=== PATIENT | male | born 1935 | race Caucasian/White ===

== ENCOUNTER 2024-11-07 01:47 | Inpatient (IN) | payer MEDICARE, MEDICAID ==
[~2024-11-07] VITALS: Ht 170.2 cm; Wt 52.6 kg
[2024-11-07] VITALS (8 sets, daily range): BP systolic 99–150; BP diastolic 51–66; PULSE 54–80; RESP 13–20; TEMP 35.7–36.3; O2SAT 95–98
[2024-11-07] MEDS: TETANUS, DIPHTHERIA, PERTUSSIS VAC/PF 0.5ML (>10YR OLD) IM ONE (02:46)
[2024-11-07 02:58] LABS: BASOPHILS % 0.7 % (0.0-2.0); HEMATOCRIT. 31.5 % (42.0-52.0); HEMOGLOBIN. 10.2 g/dL (14.0-18.0); LYMPHOCYTES % 19.7 % (20.0-50.0); MEAN CORPUSCULAR HEMOGLOBIN 28.3 pg (28.0-32.0); MEAN CORPUSCULAR HGB CONC 32.4 g/dL (31.0-37.0); MEAN CORPUSCULAR VOLUME 87.2 fL (80.0-94.0); MONOCYTES % 7.9 % (2.0-8.0); NEUTROPHILS % 68.7 % (40.0-76.0); PLATELET 158 x1000/uL (130-400); RED BLOOD CELL COUNT 3.62 mill/uL (4.7-6.1); RED CELL DISTRIBUTION WIDTH 17.1 % (11.6-14.6); WHITE BLOOD COUNT 6.1 x1000/uL (4.5-11.0)
[2024-11-07 03:08] LABS: INR 1.1; PROTHROMBIN TIME 11.9 sec (9.6-11.0)
[2024-11-07 03:11] LABS: CHLORIDE 104 mEq/L (98-107); POTASSIUM 3.5 mEq/L (3.5-5.1); SODIUM 144 mEq/L (136-145)
[2024-11-07 03:12] LABS: CARBON DIOXIDE 34 mEq/L (21-32)
[2024-11-07 03:13] LABS: CALCIUM 8.8 mg/dL (8.7-10.4)
[2024-11-07 03:17] LABS: CREATININE 0.8 mg/dL (0.6-1.3); TROPONIN I HIGH SENSITIVITY 34 ng/L (3.0-53)
[2024-11-07 03:18] LABS: GLUCOSE 126 mg/dL (70-105); UREA NITROGEN BLOOD 24 mg/dL (9-23)
[2024-11-07 03:19] LABS: ALANINE AMINOTRANSFERASE < 7 IU/L (10-49); ALBUMIN 2.8 g/dL (3.2-4.8); ASPARTATE AMINOTRANSFERASE 14 IU/L (<34)
[2024-11-07 03:20] LABS: BILIRUBIN DIRECT 0.1 mg/dL (<=3.0); BILIRUBIN TOTAL 0.4 mg/dL (0.1-1.0)
[2024-11-07] MEDS ORDERED: VANCOMYCIN 1000MG/250ML 250 ML IV STA (04:48)
[2024-11-07 04:50] LABS: CLARITY URINE CLEAR (CLEAR); COLOR URINE YELLOW (YELLOW); GLUCOSE URINE NEGATIVE (NEGATIVE); KETONES URINE NEGATIVE (NEGATIVE); LEUKOCYTE ESTERASE URINE 2+ (NEGATIVE); NITRITE URINE NEGATIVE (NEGATIVE); OCCULT BLOOD URINE NEGATIVE (NEGATIVE); PH URINE 6.5 (4.5-8.0); PROTEIN URINE NEGATIVE (NEGATIVE); SPECIFIC GRAVITY URINE 1.015 (1.005-1.030); UROBILINOGEN URINE 0.2 E.U./dL (0.2-1.0)
[2024-11-07] MEDS: PIPERACILLIN/TAZO 3.375G/50ML 50 ML IV STA (05:01)
[2024-11-07 05:13] LABS: TROPONIN I HIGH SENSITIVITY 35 ng/L (3.0-53)
[2024-11-07 05:31] LABS: SQUAMOUS EPITHELIAL CELL URINE NONE SEEN /lpf (RARE/1+)
[2024-11-07 05:32] LABS: BACTERIA URINE NONE SEEN; RBC URINE 0-2 /hpf (0-2)
[2024-11-07] MEDS: VANCOMYCIN 1GM/200ML PMX (BAXTER) IV NR (05:37)
[2024-11-07] MEDS ORDERED: CONSTULOSE (06:42)
[2024-11-07] MEDS ORDERED: OLAN2.5T77 PO (06:42)
[2024-11-07] MEDS ORDERED: AMLO10TA80 PO (06:42)
[2024-11-07] MEDS ORDERED: FLUO40CA49 PO (06:42)
[2024-11-07] MEDS ORDERED: HYDROCODONE/ACETAMINOPHEN 5/325MG TABLET PO PRN (09:00)
[2024-11-07] MEDS ORDERED: CLONIDINE 0.1MG TABLET PO PRN (09:00)
[2024-11-07] MEDS ORDERED: IPRATROPIUM/ALBUTEROL 0.5-3(2.5)MG/3ML NEB HHN PRN (09:00)
[2024-11-07] MEDS ORDERED: DEXTROSE 50% WATER 50ML SYRINGE IV PRN (09:00)
[2024-11-07] MEDS ORDERED: MAGNESIUM/ALUMINUM HYDROXIDE/SIMETHICONE 30ML UDC PO PRN (09:00)
[2024-11-07] MEDS: BLOOD SUGAR DIAGNOSTIC STRIP TEST SCH (09:20)
[2024-11-07] MEDS: ENOXAPARIN 40MG/0.4ML SYR SUBCUT SCH (09:29)
[2024-11-07] MEDS: CEFTRIAXONE 1GM/50ML 50 ML IV SCH (11:00)
[2024-11-07] MEDS: INSULIN LISPRO 100 UNITS/ML SUBCUT SCH (13:10)
[2024-11-07] MEDS: GUAIFENESIN 200MG/10ML SUGAR FREE UDC PO PRN (17:32)
[2024-11-07] MEDS: IPRATROPIUM/ALBUTEROL 0.5-3(2.5)MG/3ML NEB HHN SCH (20:56)
[2024-11-07] MEDS: FUROSEMIDE 20MG/2ML VIAL IVP SCH (21:47)
[2024-11-07] MEDS: HALOPERIDOL LACTATE 5MG/ML VIAL IM NR (22:41)
[2024-11-08] VITALS (10 sets, daily range): BP systolic 108–152; BP diastolic 48–76; PULSE 63–92; RESP 18–20; TEMP 35.8–36.6; O2SAT 91–100
[2024-11-08] MEDS: DOXYCYCLINE 100MG/100ML 100 ML IV SCH (00:30)
[2024-11-08 06:21] LABS: CARBON DIOXIDE 32 mEq/L (21-32); CHLORIDE 103 mEq/L (98-107); POTASSIUM 3.5 mEq/L (3.5-5.1); SODIUM 144 mEq/L (136-145)
[2024-11-08 06:22] LABS: CALCIUM 8.8 mg/dL (8.7-10.4)
[2024-11-08 06:24] LABS: TROPONIN I HIGH SENSITIVITY 35 ng/L (3.0-53)
[2024-11-08 06:26] LABS: CREATININE 0.7 mg/dL (0.6-1.3); GLUCOSE 89 mg/dL (70-105)
[2024-11-08 06:27] LABS: LDL CHOLESTEROL 48 mg/dL (5-100); TRIGLYCERIDE 60 mg/dL (0-150); UREA NITROGEN BLOOD 16 mg/dL (9-23)
[2024-11-08 06:28] LABS: ALANINE AMINOTRANSFERASE 7 IU/L (10-49); ALBUMIN 2.9 g/dL (3.2-4.8); ASPARTATE AMINOTRANSFERASE 18 IU/L (<34); CHOLESTEROL 120 mg/dL (<200)
[2024-11-08 06:29] LABS: BILIRUBIN DIRECT 0.1 mg/dL (<=3.0); BILIRUBIN TOTAL 0.4 mg/dL (0.1-1.0); HDL CHOLESTEROL 56 mg/dL (>55); PHOSPHORUS 2.7 mg/dL (2.5-4.9); T4 FREE 0.91 ng/dL (0.89-1.76)
[2024-11-08 06:43] LABS: BASOPHILS % 1.1 % (0.0-2.0); EOSINOPHILS % 4.1 % (0.0-5.0); HEMATOCRIT. 32.2 % (42.0-52.0); HEMOGLOBIN. 10.3 g/dL (14.0-18.0); LYMPHOCYTES % 22.7 % (20.0-50.0); MEAN CORPUSCULAR HEMOGLOBIN 28.2 pg (28.0-32.0); MEAN CORPUSCULAR HGB CONC 32.1 g/dL (31.0-37.0); MEAN CORPUSCULAR VOLUME 87.6 fL (80.0-94.0); MEAN PLATELET VOLUME 7.2 fl (7.4-10.4); MONOCYTES % 9.7 % (2.0-8.0); NEUTROPHILS % 62.4 % (40.0-76.0); PLATELET 145 x1000/uL (130-400); RED BLOOD CELL COUNT 3.67 mill/uL (4.7-6.1); RED CELL DISTRIBUTION WIDTH 16.4 % (11.6-14.6); WHITE BLOOD COUNT 4.5 x1000/uL (4.5-11.0)
[2024-11-08] MEDS: FLUOXETINE HCL 10 MG CAPSULE PO SCH (10:35)
[2024-11-08] MEDS: AMLODIPINE 10MG TABLET PO SCH (10:36)
[2024-11-08] MEDS: MAGNESIUM 1 G PREMIX 100 ML IV NR (11:43)
[2024-11-08] MEDS: POTASSIUM CHLORIDE 20MEQ TABLET SR PO NR (11:43)
[2024-11-08] MEDS: ENOXAPARIN 60MG/0.6ML SYR SUBCUT SCH (15:40)
[2024-11-08] MEDS: FUROSEMIDE 20MG/2ML VIAL IVP SCH (18:27)
[2024-11-08] MEDS: HALOPERIDOL LACTATE 5MG/ML VIAL IM PRN (22:15)
[2024-11-09] VITALS (10 sets, daily range): BP systolic 91–131; BP diastolic 47–78; PULSE 57–94; RESP 16–19; TEMP 36.1–37.1; O2SAT 90–100
[2024-11-09 08:44] LABS: BASOPHILS % 1.8 % (0.0-2.0); EOSINOPHILS % 4.3 % (0.0-5.0); HEMATOCRIT. 33.6 % (42.0-52.0); HEMOGLOBIN. 10.6 g/dL (14.0-18.0); LYMPHOCYTES % 25.9 % (20.0-50.0); MEAN CORPUSCULAR HEMOGLOBIN 27.8 pg (28.0-32.0); MEAN CORPUSCULAR HGB CONC 31.6 g/dL (31.0-37.0); MEAN CORPUSCULAR VOLUME 88.1 fL (80.0-94.0); MEAN PLATELET VOLUME 7.2 fl (7.4-10.4); MONOCYTES % 6.7 % (2.0-8.0); NEUTROPHILS % 61.3 % (40.0-76.0); PLATELET 140 x1000/uL (130-400); RED BLOOD CELL COUNT 3.81 mill/uL (4.7-6.1); RED CELL DISTRIBUTION WIDTH 16.4 % (11.6-14.6); WHITE BLOOD COUNT 3.1 x1000/uL (4.5-11.0)
[2024-11-09 08:50] LABS: CHLORIDE 102 mEq/L (98-107); POTASSIUM 3.3 mEq/L (3.5-5.1); SODIUM 145 mEq/L (136-145)
[2024-11-09 08:51] LABS: CALCIUM 8.5 mg/dL (8.7-10.4); CARBON DIOXIDE 36 mEq/L (21-32)
[2024-11-09 08:55] LABS: UREA NITROGEN BLOOD 15 mg/dL (9-23)
[2024-11-09 08:56] LABS: CREATININE 0.8 mg/dL (0.6-1.3); GLUCOSE 77 mg/dL (70-105)
[2024-11-09 08:57] LABS: ALANINE AMINOTRANSFERASE < 7 IU/L (10-49); ASPARTATE AMINOTRANSFERASE 19 IU/L (<34)
[2024-11-09 08:58] LABS: ALBUMIN 2.9 g/dL (3.2-4.8); BILIRUBIN DIRECT 0.1 mg/dL (<=3.0); BILIRUBIN TOTAL 0.5 mg/dL (0.1-1.0); PHOSPHORUS 2.9 mg/dL (2.5-4.9); PROTEIN TOTAL 6.3 g/dL (6.0-8.3)
[2024-11-09] MEDS: POTASSIUM CHLORIDE 20MEQ TABLET SR PO NR (14:19)
[2024-11-10] VITALS (10 sets, daily range): BP systolic 101–138; BP diastolic 45–68; PULSE 65–86; RESP 16–20; TEMP 36.4–37.1; O2SAT 95–99
[2024-11-10 11:25] LABS: BASOPHILS % 1.2 % (0.0-2.0); EOSINOPHILS % 3.4 % (0.0-5.0); HEMATOCRIT. 34.9 % (42.0-52.0); HEMOGLOBIN. 11.2 g/dL (14.0-18.0); MEAN CORPUSCULAR HEMOGLOBIN 28.1 pg (28.0-32.0); MEAN CORPUSCULAR VOLUME 87.7 fL (80.0-94.0); MEAN PLATELET VOLUME 7.4 fl (7.4-10.4); MONOCYTES % 6.7 % (2.0-8.0); NEUTROPHILS % 61.7 % (40.0-76.0); PLATELET 161 x1000/uL (130-400); RED BLOOD CELL COUNT 3.97 mill/uL (4.7-6.1); WHITE BLOOD COUNT 3.1 x1000/uL (4.5-11.0)
[2024-11-10 11:32] LABS: CHLORIDE 98 mEq/L (98-107); SODIUM 144 mEq/L (136-145)
[2024-11-10 11:33] LABS: CARBON DIOXIDE 33 mEq/L (21-32)
[2024-11-10 11:38] LABS: CREATININE 0.9 mg/dL (0.6-1.3); GLUCOSE 71 mg/dL (70-105); UREA NITROGEN BLOOD 17 mg/dL (9-23)
[2024-11-10] MEDS: KCL 20MEQ/100ML PREMIX 100 ML IV NR (13:04)
[2024-11-10] MEDS: MAGNESIUM 1 G PREMIX 100 ML IV NR (13:04)
[2024-11-11] VITALS (11 sets, daily range): BP systolic 110–139; BP diastolic 52–89; PULSE 60–89; RESP 16–22; TEMP 36.1–36.7; O2SAT 96–100
[2024-11-11] MEDS: POTASSIUM CHLORIDE 20MEQ/PACKET PO NR (06:46)
[2024-11-11 06:53] LABS: CARBON DIOXIDE 34 mEq/L (21-32); CHLORIDE 98 mEq/L (98-107); POTASSIUM 3.1 mEq/L (3.5-5.1); SODIUM 141 mEq/L (136-145)
[2024-11-11 06:55] LABS: CALCIUM 9.1 mg/dL (8.7-10.4)
[2024-11-11 06:59] LABS: CREATININE 0.8 mg/dL (0.6-1.3); GLUCOSE 94 mg/dL (70-105); UREA NITROGEN BLOOD 23 mg/dL (9-23)
[2024-11-11 07:12] LABS: BASOPHILS % 0.9 % (0.0-2.0); EOSINOPHILS % 2.8 % (0.0-5.0); HEMATOCRIT. 33.7 % (42.0-52.0); HEMOGLOBIN. 10.9 g/dL (14.0-18.0); LYMPHOCYTES % 27.3 % (20.0-50.0); MEAN CORPUSCULAR HEMOGLOBIN 28.1 pg (28.0-32.0); MEAN CORPUSCULAR HGB CONC 32.4 g/dL (31.0-37.0); MEAN CORPUSCULAR VOLUME 86.6 fL (80.0-94.0); MEAN PLATELET VOLUME 7.3 fl (7.4-10.4); MONOCYTES % 11.3 % (2.0-8.0); NEUTROPHILS % 57.7 % (40.0-76.0); PLATELET 172 x1000/uL (130-400); RED BLOOD CELL COUNT 3.89 mill/uL (4.7-6.1); RED CELL DISTRIBUTION WIDTH 16.8 % (11.6-14.6); WHITE BLOOD COUNT 3.7 x1000/uL (4.5-11.0)
[2024-11-11] MEDS: MAGNESIUM 2 G PREMIX 50 ML IV NR (08:59)
[2024-11-11] MEDS ORDERED: LOV60 SUBCUT (09:56)
[2024-11-11] MEDS ORDERED: APIX5TAB MT (09:56)
[2024-11-12] VITALS (8 sets, daily range): BP systolic 77–114; BP diastolic 35–55; PULSE 47–92; RESP 16–19; TEMP 35.6–36.5; O2SAT 96–99
[2024-11-12 07:56] LABS: CHLORIDE 99 mEq/L (98-107); POTASSIUM 3.3 mEq/L (3.5-5.1); SODIUM 143 mEq/L (136-145)
[2024-11-12 07:57] LABS: CALCIUM 9.2 mg/dL (8.7-10.4); CARBON DIOXIDE 30 mEq/L (21-32)
[2024-11-12 08:02] LABS: CREATININE 0.8 mg/dL (0.6-1.3); GLUCOSE 129 mg/dL (70-105); UREA NITROGEN BLOOD 29 mg/dL (9-23)
[2024-11-12 08:22] LABS: BASOPHILS % 0.6 % (0.0-2.0); EOSINOPHILS % 0.7 % (0.0-5.0); HEMATOCRIT. 31.3 % (42.0-52.0); LYMPHOCYTES % 23.3 % (20.0-50.0); MEAN CORPUSCULAR HGB CONC 31.8 g/dL (31.0-37.0); MEAN CORPUSCULAR VOLUME 87.8 fL (80.0-94.0); MEAN PLATELET VOLUME 7.8 fl (7.4-10.4); NEUTROPHILS % 68.4 % (40.0-76.0); PLATELET 142 x1000/uL (130-400); RED BLOOD CELL COUNT 3.57 mill/uL (4.7-6.1); RED CELL DISTRIBUTION WIDTH 16.8 % (11.6-14.6); WHITE BLOOD COUNT 2.3 x1000/uL (4.5-11.0)
[2024-11-12] MEDS ORDERED: POTASSIUM CHLORIDE 20MEQ/PACKET PO NR (15:00)
[2024-11-12] MEDS: SODIUM CHLORIDE 0.9% (SEPSIS BOLUS) IV ONE (16:30)
[2024-11-12] MEDS ORDERED: POTASSIUM CHLORIDE 40 MEQ in DEXT 5% WATER 230 ML IV ONE (16:45)
[2024-11-12] MEDS: KCL 20MEQ/100ML X 2 FOR TOTAL KCL 40MEQ/200ML IV SCH (18:06)
[2024-11-13] VITALS (7 sets, daily range): BP systolic 77–90; BP diastolic 32–42; PULSE 43–59; RESP 17–18; TEMP 36.1–36.6; O2SAT 97–99
[2024-11-13] MEDS: SODIUM CHLORIDE 0.9% 500 ML IV ONE (02:53)
[2024-11-13] MEDS: SODIUM CHLORIDE 0.9% 1,000 ML IV SCH (08:07)
[2024-11-13] MEDS: SODIUM CHLORIDE 0.9% 250 ML IV ONE (12:45)
[2024-11-13] MEDS: MIDODRINE HCL 5MG TABLET PO SCH ×2 (13:22→21:12)
[2024-11-14] VITALS (70 sets, daily range): BP systolic 78–128; BP diastolic 37–99; PULSE 43–76; RESP 12–23; TEMP 35.6–36.6; O2SAT 88–100
[2024-11-14] MEDS: POTASSIUM CHLORIDE 20MEQ TABLET SR PO PRN (00:24)
[2024-11-14] MEDS: NOREPINEPHRINE 8MG/250ML PMX 250 ML IV PRN (05:02)
[2024-11-14 06:30] LABS: CHLORIDE 107 mEq/L (98-107); POTASSIUM 3.9 mEq/L (3.5-5.1); SODIUM 146 mEq/L (136-145)
[2024-11-14 06:31] LABS: CALCIUM 8.1 mg/dL (8.7-10.4); CARBON DIOXIDE 29 mEq/L (21-32)
[2024-11-14 06:36] LABS: CREATININE 1.2 mg/dL (0.6-1.3); GLUCOSE 97 mg/dL (70-105); UREA NITROGEN BLOOD 38 mg/dL (9-23)
[2024-11-14 06:38] LABS: PHOSPHORUS 4.2 mg/dL (2.5-4.9)
[2024-11-14 06:41] LABS: PREALBUMIN < 5.0 mg/dl (10.0-40.0)
[2024-11-14 09:07] LABS: IMMUNOGLOBULIN A 442 mg/dL (61-437); IMMUNOGLOBULIN G 1599 mg/dL (603-1613); IMMUNOGLOBULIN M 47 mg/dL (15-143)
[2024-11-14 11:53] LABS: BASOPHILS % 0.3 % (0.0-2.0); EOSINOPHILS % 0.3 % (0.0-5.0); HEMATOCRIT. 29.9 % (42.0-52.0); HEMOGLOBIN. 9.1 g/dL (14.0-18.0); LYMPHOCYTES % 11.6 % (20.0-50.0); MEAN CORPUSCULAR HEMOGLOBIN 27.4 pg (28.0-32.0); MEAN CORPUSCULAR HGB CONC 30.5 g/dL (31.0-37.0); MEAN CORPUSCULAR VOLUME 89.8 fL (80.0-94.0); MEAN PLATELET VOLUME 8.8 fl (7.4-10.4); MONOCYTES % 10.3 % (2.0-8.0); NEUTROPHILS % 77.5 % (40.0-76.0); PLATELET 129 x1000/uL (130-400); RED BLOOD CELL COUNT 3.33 mill/uL (4.7-6.1); RED CELL DISTRIBUTION WIDTH 16.9 % (11.6-14.6); WHITE BLOOD COUNT 3.1 x1000/uL (4.5-11.0)
[2024-11-14] MEDS ORDERED: DOPAMINE 400MG/250ML PREMIX 250 ML IV SCH (14:00)
[2024-11-14] MEDS: DOPAMINE 400MG/250ML PREMIX 250 ML IV SCH (16:05)
[2024-11-14] MEDS: SODIUM CHLORIDE 0.45% 500 ML IV ONE (17:56)
[2024-11-14] MEDS: DEXTROSE 50% WATER 50ML SYRINGE IV PRN (22:05)
[2024-11-15] VITALS (94 sets, daily range): BP systolic 112–144; BP diastolic 44–95; PULSE 67–81; RESP 15–30; TEMP 36.8–37.4; O2SAT 86–100
[2024-11-15 06:08] LABS: POTASSIUM 3.8 mEq/L (3.5-5.1)
[2024-11-15 06:09] LABS: CALCIUM 8.2 mg/dL (8.7-10.4)
[2024-11-15 06:14] LABS: CREATININE 1.3 mg/dL (0.6-1.3)
[2024-11-15 06:34] LABS: HEMATOCRIT. 29.4 % (42.0-52.0); HEMOGLOBIN. 9.3 g/dL (14.0-18.0); MEAN CORPUSCULAR HGB CONC 31.8 g/dL (31.0-37.0); MEAN CORPUSCULAR VOLUME 88.2 fL (80.0-94.0); MEAN PLATELET VOLUME 8.1 fl (7.4-10.4); PLATELET 132 x1000/uL (130-400); RED BLOOD CELL COUNT 3.33 mill/uL (4.7-6.1); WHITE BLOOD COUNT 4.2 x1000/uL (4.5-11.0)
[2024-11-15 06:51] LABS: DIFFERENTIAL COMMENT 1
[2024-11-15 11:14] LABS: PLATELET ESTIMATE NORMAL
[2024-11-15 11:15] LABS: ANISOCYTOSIS 1+
[2024-11-15] MEDS: DEXTROSE 5% WATER 1,000 ML IV SCH (12:01)
[2024-11-15] MEDS: DOPAMINE 400MG/250ML PREMIX 250 ML IV SCH (20:00)
[2024-11-15] MEDS: IPRATROPIUM/ALBUTEROL 0.5-3(2.5)MG/3ML NEB HHN SCH (21:02)
[2024-11-15] MEDS: THEOPHYLLINE ANHYDROUS 80MG/15ML ORAL SYR PO SCH (21:32)
[2024-11-15] MEDS: MIDODRINE HCL 5MG TABLET PO SCH (22:00)
[2024-11-16] VITALS (65 sets, daily range): BP systolic 104–150; BP diastolic 47–80; PULSE 67–90; RESP 14–21; TEMP 36.3–36.8; O2SAT 95–100
[2024-11-16 06:36] LABS: CARBON DIOXIDE 29 mEq/L (21-32); CHLORIDE 109 mEq/L (98-107); POTASSIUM 3.5 mEq/L (3.5-5.1); SODIUM 144 mEq/L (136-145)
[2024-11-16 06:37] LABS: BASOPHILS % 0.3 % (0.0-2.0); CALCIUM 8.4 mg/dL (8.7-10.4); EOSINOPHILS % 0.1 % (0.0-5.0); HEMATOCRIT. 27.7 % (42.0-52.0); MEAN CORPUSCULAR HEMOGLOBIN 28.3 pg (28.0-32.0); MEAN CORPUSCULAR HGB CONC 32.4 g/dL (31.0-37.0); MEAN CORPUSCULAR VOLUME 87.2 fL (80.0-94.0); MEAN PLATELET VOLUME 8.2 fl (7.4-10.4); MONOCYTES % 6.5 % (2.0-8.0); NEUTROPHILS % 76.1 % (40.0-76.0); PLATELET 114 x1000/uL (130-400); RED BLOOD CELL COUNT 3.17 mill/uL (4.7-6.1); RED CELL DISTRIBUTION WIDTH 16.8 % (11.6-14.6); WHITE BLOOD COUNT 5.9 x1000/uL (4.5-11.0)
[2024-11-16 06:42] LABS: CREATININE 1.4 mg/dL (0.6-1.3); UREA NITROGEN BLOOD 40 mg/dL (9-23)
[2024-11-16 06:43] LABS: GLUCOSE 232 mg/dL (70-105)
[2024-11-16] MEDS ORDERED: DOPAMINE 400MG/250ML PREMIX 250 ML IV PRN ×2 (09:30→10:03)
[2024-11-16] MEDS ORDERED: POTASSIUM CHLORIDE 20MEQ TABLET SR PO NR (10:30)
[2024-11-16] MEDS: FUROSEMIDE 40MG/4ML VIAL IVP NR (12:10)
[2024-11-16] MEDS: KCL 20MEQ/100ML PREMIX 100 ML IV NR (12:10)
[2024-11-17] VITALS (26 sets, daily range): BP systolic 92–143; BP diastolic 44–68; PULSE 68–90; RESP 13–24; TEMP 36.4–36.9; O2SAT 51–100
[2024-11-17 07:00] LABS: POTASSIUM 4.6 mEq/L (3.5-5.1)
[2024-11-17 07:02] LABS: CALCIUM 8.5 mg/dL (8.7-10.4)
[2024-11-17 07:06] LABS: CREATININE 1.3 mg/dL (0.6-1.3)
[2024-11-17 07:11] LABS: BASOPHILS % 0.5 % (0.0-2.0); EOSINOPHILS % 1.8 % (0.0-5.0); HEMATOCRIT. 24.9 % (42.0-52.0); LYMPHOCYTES % 19.7 % (20.0-50.0); MEAN CORPUSCULAR HEMOGLOBIN 28.7 pg (28.0-32.0); MEAN CORPUSCULAR VOLUME 89.9 fL (80.0-94.0); MEAN PLATELET VOLUME 7.9 fl (7.4-10.4); MONOCYTES % 7.4 % (2.0-8.0); NEUTROPHILS % 70.6 % (40.0-76.0); PLATELET 93 x1000/uL (130-400); RED BLOOD CELL COUNT 2.77 mill/uL (4.7-6.1); RED CELL DISTRIBUTION WIDTH 16.9 % (11.6-14.6); WHITE BLOOD COUNT 4.7 x1000/uL (4.5-11.0)
[2024-11-17] MEDS: ACETAMINOPHEN 325MG TABLET PO PRN (15:03)
[2024-11-18] VITALS (19 sets, daily range): BP systolic 100–141; BP diastolic 47–88; PULSE 70–91; RESP 14–28; TEMP 36.2–36.78072; O2SAT 90–100
[2024-11-18 08:58] LABS: POTASSIUM 4.1 mEq/L (3.5-5.1)
[2024-11-18 08:59] LABS: CALCIUM 9.1 mg/dL (8.7-10.4)
[2024-11-18 09:04] LABS: CREATININE 1.2 mg/dL (0.6-1.3)
[2024-11-18] MEDS: SCOPOLAMINE HYDROBROMIDE PATCH 72HR TD SCH (12:16)
[2024-11-18 13:54] LABS: BASOPHILS % 0.7 % (0.0-2.0); DIFFERENTIAL COMMENT 0; EOSINOPHILS % 6.8 % (0.0-5.0); LYMPHOCYTES % 22.6 % (20.0-50.0); MEAN CORPUSCULAR HEMOGLOBIN 28.3 pg (28.0-32.0); MEAN CORPUSCULAR HGB CONC 32.8 g/dL (31.0-37.0); MEAN CORPUSCULAR VOLUME 86.4 fL (80.0-94.0); MEAN PLATELET VOLUME 8.2 fl (7.4-10.4); MONOCYTES % 12.7 % (2.0-8.0); NEUTROPHILS % 57.2 % (40.0-76.0); PLATELET 103 x1000/uL (130-400); RED BLOOD CELL COUNT 2.12 mill/uL (4.7-6.1); RED CELL DISTRIBUTION WIDTH 16.5 % (11.6-14.6); WHITE BLOOD COUNT 3.2 x1000/uL (4.5-11.0)
[2024-11-18 14:04] LABS: HEMATOCRIT. 18.3 % (42.0-52.0)
[2024-11-19] VITALS (14 sets, daily range): BP systolic 114–143; BP diastolic 57–102; PULSE 67–85; RESP 11–20; TEMP 35.6–37.1; O2SAT 88–100
[2024-11-19 02:27] LABS: PROTHROMBIN TIME 10.6 sec (9.6-11.0)
[2024-11-19] MEDS ORDERED: SCOPOLAMINE HYDROBROMIDE PATCH 72HR TD SCH (09:00)
[2024-11-19] MEDS: KCL 20MEQ/100ML PREMIX 100 ML IV NR (16:25)
[2024-11-19 16:51] LABS: HEMATOCRIT 22.6 % (42.0-52.0); HEMOGLOBIN 7.6 g/dL (14.0-18.0)
[2024-11-20] VITALS (12 sets, daily range): BP systolic 109–149; BP diastolic 59–81; PULSE 68–81; RESP 15–23; TEMP 36.1–36.8; O2SAT 92–98
[2024-11-20 05:37] LABS: POTASSIUM 4.7 mEq/L (3.5-5.1)
[2024-11-20 05:39] LABS: CALCIUM 8.9 mg/dL (8.7-10.4)
[2024-11-20 05:43] LABS: CREATININE 1.2 mg/dL (0.6-1.3)
[2024-11-20 05:58] LABS: HEMATOCRIT. 23.4 % (42.0-52.0); HEMOGLOBIN. 7.6 g/dL (14.0-18.0); MEAN CORPUSCULAR HEMOGLOBIN 27.9 pg (28.0-32.0); MEAN CORPUSCULAR HGB CONC 32.7 g/dL (31.0-37.0); MEAN CORPUSCULAR VOLUME 85.3 fL (80.0-94.0); PLATELET 134 x1000/uL (130-400); RED BLOOD CELL COUNT 2.74 mill/uL (4.7-6.1); RED CELL DISTRIBUTION WIDTH 16.5 % (11.6-14.6); WHITE BLOOD COUNT 3.2 x1000/uL (4.5-11.0)
[2024-11-20 06:50] LABS: DIFFERENTIAL COMMENT 1
[2024-11-20] MEDS ORDERED: SODIUM CHLORIDE 0.45% 1,000 ML IV SCH (10:15)
[2024-11-20] MEDS: PIPERACILLIN/TAZO 3.375G/50ML 50 ML IV SCH (10:15)
[2024-11-20] MEDS: PANTOPRAZOLE SODIUM 40 MG/VIAL IV NR (10:33)
[2024-11-20] MEDS: VANCOMYCIN 1GM PMX (XELLIA) 200 ML IV SCH (11:52)
[2024-11-20] MEDS: MIDODRINE HCL 5MG TABLET PO SCH (13:09)
[2024-11-20 15:18] LABS: ANISOCYTOSIS 1+; HYPOCHROMASIA 1+; PLATELET ESTIMATE NORMAL
[2024-11-21] VITALS (16 sets, daily range): BP systolic 110–146; BP diastolic 57–92; PULSE 67–74; RESP 14–19; TEMP 36.28068–36.6; O2SAT 85–100
[2024-11-21 07:06] LABS: CARBON DIOXIDE 32 mEq/L (21-32); CHLORIDE 104 mEq/L (98-107); POTASSIUM 4.5 mEq/L (3.5-5.1); SODIUM 142 mEq/L (136-145)
[2024-11-21 07:07] LABS: CALCIUM 8.5 mg/dL (8.7-10.4)
[2024-11-21 07:10] LABS: CREATININE 1.3 mg/dL (0.6-1.3)
[2024-11-21 07:11] LABS: GLUCOSE 112 mg/dL (70-105); IRON 29 ug/dL (65-175)
[2024-11-21 07:12] LABS: UREA NITROGEN BLOOD 45 mg/dL (9-23)
[2024-11-21 07:14] LABS: TOTAL IRON BINDING CAPACITY 207 ug/dl (250-425)
[2024-11-21 07:17] LABS: VITAMIN B12 SERUM 901 pg/mL (211-911)
[2024-11-21 07:18] LABS: FERRITIN 188 ng/mL (22-322); FOLIC ACID (FOLATE) SERUM 12.47 ng/mL (>5.38)
[2024-11-21 08:27] LABS: BASOPHILS % 0.5 % (0.0-2.0); DIFFERENTIAL COMMENT 0; EOSINOPHILS % 4.6 % (0.0-5.0); LYMPHOCYTES % 20.6 % (20.0-50.0); MEAN CORPUSCULAR HGB CONC 33.5 g/dL (31.0-37.0); MEAN CORPUSCULAR VOLUME 86.6 fL (80.0-94.0); MEAN PLATELET VOLUME 7.9 fl (7.4-10.4); MONOCYTES % 12.2 % (2.0-8.0); NEUTROPHILS % 62.1 % (40.0-76.0); PLATELET 136 x1000/uL (130-400); RED BLOOD CELL COUNT 2.39 mill/uL (4.7-6.1); RED CELL DISTRIBUTION WIDTH 16.6 % (11.6-14.6); WHITE BLOOD COUNT 4.1 x1000/uL (4.5-11.0)
[2024-11-21 08:44] LABS: HEMATOCRIT. 20.7 % (42.0-52.0); HEMOGLOBIN. 6.9 g/dL (14.0-18.0)
[2024-11-21] MEDS: PANTOPRAZOLE SODIUM 40 MG/VIAL IV SCH (09:28)
[2024-11-21] MEDS: VANCOMYCIN 750MG PMX (XELLIA) 150 ML IV SCH (09:28)
[2024-11-21] MEDS: LORAZEPAM 2MG/ML UD SYRINGE IV NR (15:00)
[2024-11-21] MEDS: FERROUS SULFATE 300MG/5ML UDC NG SCH (20:34)
[2024-11-21] MEDS: ASCORBIC ACID 250 MG TABLET NG SCH (20:34)
[2024-11-22] VITALS (11 sets, daily range): BP systolic 122–141; BP diastolic 61–96; PULSE 61–78; RESP 12–19; TEMP 36.1–36.7; O2SAT 88–97
[2024-11-22] MEDS: DEXTROSE 5% WATER 1,000 ML IV SCH (01:15)
[2024-11-22 06:43] LABS: POTASSIUM 4.3 mEq/L (3.5-5.1)
[2024-11-22 06:44] LABS: CALCIUM 8.6 mg/dL (8.7-10.4)
[2024-11-22 06:49] LABS: CREATININE 1.2 mg/dL (0.6-1.3)
[2024-11-22 06:53] LABS: BASOPHILS % 1.8 % (0.0-2.0); EOSINOPHILS % 6.9 % (0.0-5.0); HEMATOCRIT. 25.1 % (42.0-52.0); HEMOGLOBIN. 8.3 g/dL (14.0-18.0); LYMPHOCYTES % 22.4 % (20.0-50.0); MEAN CORPUSCULAR HEMOGLOBIN 28.5 pg (28.0-32.0); MEAN CORPUSCULAR HGB CONC 32.9 g/dL (31.0-37.0); MEAN CORPUSCULAR VOLUME 86.5 fL (80.0-94.0); MEAN PLATELET VOLUME 7.4 fl (7.4-10.4); MONOCYTES % 14.3 % (2.0-8.0); NEUTROPHILS % 54.6 % (40.0-76.0); PLATELET 158 x1000/uL (130-400); RED CELL DISTRIBUTION WIDTH 16.1 % (11.6-14.6); WHITE BLOOD COUNT 4.6 x1000/uL (4.5-11.0)
[2024-11-22] MEDS ORDERED: POLYMYXIN B SULFATE 500000 UNITS/VIAL ONE (12:56)
[2024-11-22] MEDS ORDERED: LIDOCAINE HCL 1% 10 MG/ML 10ML VIAL ONE (12:56)
[2024-11-22] MEDS ORDERED: BUPIVACAINE HCL/PF 0.5% (5MG/ML) 10ML ONE (12:56)
[2024-11-22] MEDS ORDERED: MIDAZOLAM HCL 2 MG/2 ML VIAL ONE (13:24)
[2024-11-22] MEDS: MIDODRINE HCL 5MG TABLET PO SCH (14:24)
[2024-11-22] MEDS: FUROSEMIDE 20MG/2ML VIAL IVP SCH (18:15)
[2024-11-23] VITALS (15 sets, daily range): BP systolic 99–140; BP diastolic 51–101; PULSE 72–87; RESP 11–27; TEMP 36.2–37.4; O2SAT 76–100
[2024-11-23 05:57] LABS: HEMATOCRIT. 25.9 % (42.0-52.0); HEMOGLOBIN. 8.4 g/dL (14.0-18.0); MEAN CORPUSCULAR HEMOGLOBIN 28.2 pg (28.0-32.0); MEAN CORPUSCULAR HGB CONC 32.4 g/dL (31.0-37.0); MEAN PLATELET VOLUME 7.8 fl (7.4-10.4); PLATELET 207 x1000/uL (130-400); RED BLOOD CELL COUNT 2.98 mill/uL (4.7-6.1); WHITE BLOOD COUNT 5.7 x1000/uL (4.5-11.0)
[2024-11-23 06:10] LABS: POTASSIUM 4.8 mEq/L (3.5-5.1)
[2024-11-23 06:12] LABS: CALCIUM 8.6 mg/dL (8.7-10.4)
[2024-11-23 06:16] LABS: CREATININE 1.3 mg/dL (0.6-1.3)
[2024-11-23 06:32] LABS: DIFFERENTIAL COMMENT 1
[2024-11-23] MEDS: VANCOMYCIN 1GM PMX (XELLIA) 200 ML IV SCH (09:21)
[2024-11-23 13:45] LABS: ANISOCYTOSIS 1+; PLATELET ESTIMATE NORMAL
[2024-11-24] VITALS (16 sets, daily range): BP systolic 133–155; BP diastolic 62–90; PULSE 64–81; RESP 11–18; TEMP 36.4–36.7; O2SAT 90–100
[2024-11-24] MEDS: HALOPERIDOL LACTATE 5MG/ML VIAL IM NR (02:00)
[2024-11-25] VITALS (13 sets, daily range): BP systolic 102–153; BP diastolic 59–99; PULSE 75–94; RESP 11–21; TEMP 36.4–36.9; O2SAT 82–100
[2024-11-25 08:21] LABS: BASOPHILS % 0.7 % (0.0-2.0); EOSINOPHILS % 6.5 % (0.0-5.0); HEMOGLOBIN. 9.5 g/dL (14.0-18.0); MEAN CORPUSCULAR HEMOGLOBIN 29.6 pg (28.0-32.0); MEAN CORPUSCULAR VOLUME 87.1 fL (80.0-94.0); MEAN PLATELET VOLUME 7.4 fl (7.4-10.4); NEUTROPHILS % 62.8 % (40.0-76.0); PLATELET 302 x1000/uL (130-400); RED BLOOD CELL COUNT 3.21 mill/uL (4.7-6.1); RED CELL DISTRIBUTION WIDTH 16.1 % (11.6-14.6); WHITE BLOOD COUNT 4.8 x1000/uL (4.5-11.0)
[2024-11-25 08:39] LABS: CARBON DIOXIDE 32 mEq/L (21-32); CHLORIDE 96 mEq/L (98-107); POTASSIUM 3.9 mEq/L (3.5-5.1); SODIUM 138 mEq/L (136-145)
[2024-11-25 08:40] LABS: CALCIUM 8.6 mg/dL (8.7-10.4)
[2024-11-25 08:44] LABS: CREATININE 1.2 mg/dL (0.6-1.3)
[2024-11-25 08:45] LABS: GLUCOSE 156 mg/dL (70-105); UREA NITROGEN BLOOD 32 mg/dL (9-23)
[2024-11-25] MEDS: MAGNESIUM 2 G PREMIX 50 ML IV SCH (12:06)
[2024-11-26] VITALS (11 sets, daily range): BP systolic 98–157; BP diastolic 63–145; PULSE 79–103; RESP 13–23; TEMP 36.2–36.5; O2SAT 97–99
[2024-11-26 06:17] LABS: EOSINOPHILS % 7.1 % (0.0-5.0); HEMATOCRIT. 30.8 % (42.0-52.0); HEMOGLOBIN. 10.2 g/dL (14.0-18.0); LYMPHOCYTES % 18.4 % (20.0-50.0); MEAN CORPUSCULAR HEMOGLOBIN 28.7 pg (28.0-32.0); MEAN CORPUSCULAR HGB CONC 33.2 g/dL (31.0-37.0); MEAN CORPUSCULAR VOLUME 86.5 fL (80.0-94.0); MEAN PLATELET VOLUME 7.3 fl (7.4-10.4); MONOCYTES % 10.4 % (2.0-8.0); NEUTROPHILS % 63.1 % (40.0-76.0); PLATELET 320 x1000/uL (130-400); RED BLOOD CELL COUNT 3.56 mill/uL (4.7-6.1); RED CELL DISTRIBUTION WIDTH 15.9 % (11.6-14.6); WHITE BLOOD COUNT 4.6 x1000/uL (4.5-11.0)
[2024-11-26 06:26] LABS: CALCIUM 8.3 mg/dL (8.7-10.4); CARBON DIOXIDE 33 mEq/L (21-32); CHLORIDE 91 mEq/L (98-107); POTASSIUM 3.6 mEq/L (3.5-5.1); SODIUM 134 mEq/L (136-145)
[2024-11-26 06:31] LABS: CREATININE 1.2 mg/dL (0.6-1.3); GLUCOSE 145 mg/dL (70-105)
[2024-11-26 06:32] LABS: UREA NITROGEN BLOOD 33 mg/dL (9-23)
[2024-11-26 06:34] LABS: PHOSPHORUS 3.1 mg/dL (2.5-4.9)
[2024-11-26] MEDS: LIDOCAINE HCL 1% 10 MG/ML 10ML VIAL ONE (07:57)
[2024-11-26] MEDS: IOHEXOL-300 100 ML BOTTLE ONE (08:01)
[2024-11-26] MEDS: VANCOMYCIN 750MG PMX (XELLIA) 150 ML IV SCH (08:42)
[2024-11-26 17:40] LABS: CREATINE KINASE 73 IU/L (46-171)
[2024-11-26] MEDS: DAPTOMYCIN 350 MG in SODIUM CHLORIDE 0.9% 50 ML IV SCH (17:47)
[2024-11-26] MEDS: AMLODIPINE 5MG TABLET PO SCH (22:34)
[2024-11-27] VITALS: BP 121/52; PULSE 95; RESP 15; TEMP 36.4; O2SAT 98
[2024-11-27 04:00] VITALS: BP 108/70; PULSE 88; RESP 20; TEMP 36.6; O2SAT 98
[2024-11-27 07:50] LABS: POTASSIUM 3.1 mEq/L (3.5-5.1)
[2024-11-27 07:51] LABS: CALCIUM 8.1 mg/dL (8.7-10.4)
[2024-11-27 07:56] LABS: CREATININE 1.2 mg/dL (0.6-1.3)
[2024-11-27 08:00] VITALS: BP 141/53; PULSE 92; RESP 18; TEMP 36.6; O2SAT 94
[2024-11-27 08:03] LABS: BASOPHILS % 1.2 % (0.0-2.0); EOSINOPHILS % 5.2 % (0.0-5.0); HEMATOCRIT. 27.4 % (42.0-52.0); HEMOGLOBIN. 9.3 g/dL (14.0-18.0); LYMPHOCYTES % 16.2 % (20.0-50.0); MEAN CORPUSCULAR HEMOGLOBIN 29.1 pg (28.0-32.0); MEAN CORPUSCULAR VOLUME 85.7 fL (80.0-94.0); MEAN PLATELET VOLUME 7.3 fl (7.4-10.4); MONOCYTES % 9.9 % (2.0-8.0); NEUTROPHILS % 67.5 % (40.0-76.0); PLATELET 319 x1000/uL (130-400); RED BLOOD CELL COUNT 3.19 mill/uL (4.7-6.1); RED CELL DISTRIBUTION WIDTH 16.5 % (11.6-14.6); WHITE BLOOD COUNT 4.8 x1000/uL (4.5-11.0)
[2024-11-27] MEDS: POTASSIUM CHLORIDE 20MEQ/PACKET PO NR (11:06)
[2024-11-27 12:00] VITALS: BP 118/68; PULSE 91; RESP 21; TEMP 36.7; O2SAT 96
[2024-11-27 12:43] LABS: BG BASE EXCESS 10.3 mmol/L (-2.0-3.0); BG CARBOXYHEMOGLOBIN 0.5 % (0.5-1.5); BG DEOXYHEMOGLOBIN 3.8 % (0.0-5.0); BG FRACTION INSPIRED OXYGEN 21; BG METHEMOGLOBIN 0.3 % (0.5-1.5); BG OXYGEN SATURATION 96.2 % (94.0-98.0); BG OXYHEMOGLOBIN 95.4 % (94.0-98.0); BG PCO2 47.9 mmHg (35.0-48.0); BG PH 7.481 (7.350-7.450); BG PO2 78.3 mmHg (83.0-108.0); BG SAMPLE SITE RIGHT RADIAL; BG TOTAL HEMOGLOBIN 9.3 g/dL (13.5-17.5); BG VENT MODE ROOM AIR
[2024-11-27] MEDS: ONDANSETRON HCL 4MG/2ML INJ IV PRN (14:27)
[2024-11-27 16:00] VITALS: BP 135/58; PULSE 93; RESP 15; TEMP 36.6; O2SAT 100
[2024-11-27 20:00] VITALS: BP 122/66; PULSE 87; RESP 17; TEMP 36.3; O2SAT 96
[2024-11-28] VITALS (7 sets, daily range): BP systolic 83–128; BP diastolic 49–71; PULSE 75–90; RESP 13–19; TEMP 36.4–36.7; O2SAT 96–100
[2024-11-28 05:58] LABS: CALCIUM 8.1 mg/dL (8.7-10.4); CARBON DIOXIDE 33 mEq/L (21-32); CHLORIDE 93 mEq/L (98-107); POTASSIUM 3.4 mEq/L (3.5-5.1); SODIUM 134 mEq/L (136-145)
[2024-11-28 06:02] LABS: CREATININE 1.2 mg/dL (0.6-1.3)
[2024-11-28 06:04] LABS: GLUCOSE 141 mg/dL (70-105); UREA NITROGEN BLOOD 35 mg/dL (9-23)
[2024-11-28 06:06] LABS: PHOSPHORUS 3.7 mg/dL (2.5-4.9)
[2024-11-28 06:21] LABS: BASOPHILS % 1.1 % (0.0-2.0); EOSINOPHILS % 7.2 % (0.0-5.0); HEMATOCRIT. 26.4 % (42.0-52.0); HEMOGLOBIN. 8.6 g/dL (14.0-18.0); LYMPHOCYTES % 18.8 % (20.0-50.0); MEAN CORPUSCULAR HEMOGLOBIN 28.6 pg (28.0-32.0); MEAN CORPUSCULAR HGB CONC 32.8 g/dL (31.0-37.0); MEAN CORPUSCULAR VOLUME 87.1 fL (80.0-94.0); MEAN PLATELET VOLUME 7.5 fl (7.4-10.4); MONOCYTES % 8.4 % (2.0-8.0); NEUTROPHILS % 64.5 % (40.0-76.0); PLATELET 291 x1000/uL (130-400); RED BLOOD CELL COUNT 3.03 mill/uL (4.7-6.1); RED CELL DISTRIBUTION WIDTH 16.2 % (11.6-14.6); WHITE BLOOD COUNT 4.1 x1000/uL (4.5-11.0)
[2024-11-28] MEDS: POTASSIUM CHLORIDE 20MEQ/PACKET PO PRN (12:42)
[2024-11-29] VITALS: BP 120/51; PULSE 73; RESP 13; TEMP 36.3; O2SAT 96
[2024-11-29 04:00] VITALS: BP 139/51; PULSE 73; RESP 14; TEMP 36.6; O2SAT 96
[2024-11-29 08:00] VITALS: BP 125/65; PULSE 72; RESP 16; TEMP 36.4; O2SAT 100
[2024-11-29 12:00] VITALS: BP 118/60; PULSE 73; RESP 13; O2SAT 100
[2024-11-29 16:00] VITALS: BP 119/46; PULSE 72; RESP 16; TEMP 36.1; O2SAT 100
[2024-11-29 20:00] VITALS: BP 126/43; PULSE 74; RESP 16; O2SAT 99
[2024-11-29] MEDS: DOCUSATE SODIUM 100MG CAPSULE PO PRN (20:59)
[2024-11-30] VITALS: BP 146/42; PULSE 66; RESP 13; TEMP 37; O2SAT 99
[2024-11-30 04:00] VITALS: BP 146/56; PULSE 67; RESP 14; TEMP 36.6; O2SAT 100
[2024-11-30 07:17] LABS: BASOPHILS % 2.2 % (0.0-2.0); EOSINOPHILS % 12.3 % (0.0-5.0); HEMATOCRIT. 23.5 % (42.0-52.0); LYMPHOCYTES % 27.8 % (20.0-50.0); MEAN CORPUSCULAR HEMOGLOBIN 29.7 pg (28.0-32.0); MEAN CORPUSCULAR HGB CONC 34.1 g/dL (31.0-37.0); MEAN CORPUSCULAR VOLUME 87.1 fL (80.0-94.0); MONOCYTES % 12.4 % (2.0-8.0); NEUTROPHILS % 45.3 % (40.0-76.0); PLATELET 289 x1000/uL (130-400); RED CELL DISTRIBUTION WIDTH 16.8 % (11.6-14.6); WHITE BLOOD COUNT 3.3 x1000/uL (4.5-11.0)
[2024-11-30 07:31] LABS: CALCIUM 7.8 mg/dL (8.7-10.4); CHLORIDE 96 mEq/L (98-107); POTASSIUM 3.6 mEq/L (3.5-5.1); SODIUM 137 mEq/L (136-145)
[2024-11-30 07:32] LABS: CARBON DIOXIDE 35 mEq/L (21-32)
[2024-11-30 07:37] LABS: CREATININE 1.1 mg/dL (0.6-1.3); GLUCOSE 135 mg/dL (70-105); UREA NITROGEN BLOOD 35 mg/dL (9-23)
[2024-11-30 08:00] VITALS: BP 135/49; PULSE 69; RESP 19; TEMP 36.6; O2SAT 100
[2024-11-30 12:00] VITALS: BP 119/53; PULSE 65; RESP 11; TEMP 36.7; O2SAT 98
[2024-11-30 16:00] VITALS: BP 117/47; PULSE 74; RESP 18; TEMP 36.7; O2SAT 99
[2024-11-30] MEDS: MAGNESIUM 2 G PREMIX 50 ML IV NR (18:23)
[2024-11-30 20:00] VITALS: BP 127/37; PULSE 70; RESP 15; TEMP 36.2; O2SAT 98
[2024-12-01] VITALS: BP 96/79; PULSE 68; RESP 20; TEMP 36.6; O2SAT 97
[2024-12-01 04:00] VITALS: BP 136/63; PULSE 67; RESP 17; TEMP 36.4; O2SAT 99
[2024-12-01 08:00] VITALS: BP 136/44; PULSE 61; RESP 15; TEMP 36.6; O2SAT 94
[2024-12-01 08:03] LABS: BASOPHILS % 2.3 % (0.0-2.0); EOSINOPHILS % 13.3 % (0.0-5.0); HEMATOCRIT. 26.5 % (42.0-52.0); HEMOGLOBIN. 9.1 g/dL (14.0-18.0); LYMPHOCYTES % 32.8 % (20.0-50.0); MEAN CORPUSCULAR HEMOGLOBIN 29.6 pg (28.0-32.0); MEAN CORPUSCULAR HGB CONC 34.3 g/dL (31.0-37.0); MEAN CORPUSCULAR VOLUME 86.4 fL (80.0-94.0); MEAN PLATELET VOLUME 6.9 fl (7.4-10.4); MONOCYTES % 12.9 % (2.0-8.0); NEUTROPHILS % 38.7 % (40.0-76.0); PLATELET 316 x1000/uL (130-400); RED BLOOD CELL COUNT 3.06 mill/uL (4.7-6.1); RED CELL DISTRIBUTION WIDTH 17.2 % (11.6-14.6); WHITE BLOOD COUNT 3.2 x1000/uL (4.5-11.0)
[2024-12-01 08:26] LABS: CARBON DIOXIDE 39 mEq/L (21-32); CHLORIDE 95 mEq/L (98-107); POTASSIUM 3.9 mEq/L (3.5-5.1); SODIUM 139 mEq/L (136-145)
[2024-12-01 08:27] LABS: CALCIUM 8.6 mg/dL (8.7-10.4)
[2024-12-01 08:32] LABS: CREATININE 1.1 mg/dL (0.6-1.3); GLUCOSE 109 mg/dL (70-105); UREA NITROGEN BLOOD 38 mg/dL (9-23)
[2024-12-01 08:34] LABS: PHOSPHORUS 3.6 mg/dL (2.5-4.9)
[2024-12-01 12:00] VITALS: BP 135/52; PULSE 63; RESP 18; TEMP 36.5; O2SAT 95
[2024-12-01 16:00] VITALS: BP 136/48; PULSE 62; RESP 17; TEMP 36.4; O2SAT 95
[2024-12-01 20:00] VITALS: BP 130/98; PULSE 71; RESP 17; TEMP 35.7; O2SAT 97
[2024-12-01 21:05] LABS: CREATINE KINASE 37 IU/L (46-171)
[2024-12-02] VITALS: BP 128/30; PULSE 64; RESP 18; TEMP 36.5; O2SAT 97
[2024-12-02 04:00] VITALS: BP 130/70; PULSE 70; RESP 19; TEMP 36.6; O2SAT 98
[2024-12-02 08:00] VITALS: BP 143/41; PULSE 63; RESP 18; TEMP 36.7; O2SAT 95
[2024-12-02 08:15] LABS: BASOPHILS % 2.7 % (0.0-2.0); EOSINOPHILS % 12.7 % (0.0-5.0); HEMATOCRIT. 26.4 % (42.0-52.0); LYMPHOCYTES % 31.6 % (20.0-50.0); MEAN CORPUSCULAR HEMOGLOBIN 29.3 pg (28.0-32.0); MEAN CORPUSCULAR HGB CONC 33.9 g/dL (31.0-37.0); MEAN CORPUSCULAR VOLUME 86.3 fL (80.0-94.0); MEAN PLATELET VOLUME 6.8 fl (7.4-10.4); MONOCYTES % 14.4 % (2.0-8.0); NEUTROPHILS % 38.6 % (40.0-76.0); PLATELET 337 x1000/uL (130-400); RED BLOOD CELL COUNT 3.07 mill/uL (4.7-6.1); RED CELL DISTRIBUTION WIDTH 17.2 % (11.6-14.6); WHITE BLOOD COUNT 2.8 x1000/uL (4.5-11.0)
[2024-12-02 08:17] LABS: CARBON DIOXIDE 36 mEq/L (21-32); CHLORIDE 96 mEq/L (98-107); POTASSIUM 3.4 mEq/L (3.5-5.1); SODIUM 138 mEq/L (136-145)
[2024-12-02 08:18] LABS: CALCIUM 8.5 mg/dL (8.7-10.4)
[2024-12-02 08:23] LABS: GLUCOSE 100 mg/dL (70-105); UREA NITROGEN BLOOD 37 mg/dL (9-23)
[2024-12-02 12:00] VITALS: BP 138/43; PULSE 0; RESP 18; TEMP 36.6; O2SAT 95
[2024-12-02] MEDS: POTASSIUM CHLORIDE 20MEQ TABLET SR PO NR (13:03)
[2024-12-02 14:46] LABS: PHOSPHORUS 3.4 mg/dL (2.5-4.9)
[2024-12-02 15:44] VITALS: BP 119/30; PULSE 73; RESP 18; TEMP 36.4; O2SAT 98
[2024-12-02 20:00] VITALS: BP 125/40; PULSE 65; RESP 19; TEMP 36.5; O2SAT 95
[2024-12-03] VITALS: BP 131/36; PULSE 68; RESP 19; TEMP 36.3; O2SAT 95
[2024-12-03 04:00] VITALS: BP 121/40; PULSE 63; RESP 19; TEMP 36.4; O2SAT 96
[2024-12-03 08:00] VITALS: BP 140/43; PULSE 65; RESP 16; TEMP 36.2; O2SAT 96
[2024-12-03 08:28] LABS: HEMATOCRIT. 27.4 % (42.0-52.0); HEMOGLOBIN. 9.1 g/dL (14.0-18.0); MEAN CORPUSCULAR HGB CONC 33.3 g/dL (31.0-37.0); MEAN CORPUSCULAR VOLUME 87.3 fL (80.0-94.0); MEAN PLATELET VOLUME 6.6 fl (7.4-10.4); PLATELET 320 x1000/uL (130-400); RED BLOOD CELL COUNT 3.14 mill/uL (4.7-6.1); RED CELL DISTRIBUTION WIDTH 17.2 % (11.6-14.6); WHITE BLOOD COUNT 3.1 x1000/uL (4.5-11.0)
[2024-12-03 08:43] LABS: DIFFERENTIAL COMMENT 1
[2024-12-03 08:44] LABS: POTASSIUM 3.5 mEq/L (3.5-5.1)
[2024-12-03 08:46] LABS: CALCIUM 8.7 mg/dL (8.7-10.4)
[2024-12-03 08:50] LABS: CREATININE 1.2 mg/dL (0.6-1.3)
[2024-12-03] MEDS: POTASSIUM CHLORIDE 20MEQ TABLET SR PO NR (10:23)
[2024-12-03 12:00] VITALS: BP 96/48; PULSE 59; RESP 16; TEMP 36.4; O2SAT 96
[2024-12-03 16:00] VITALS: BP 136/64; PULSE 55; RESP 18; TEMP 35.7; O2SAT 97
[2024-12-03 16:05] LABS: PLATELET ESTIMATE NORMAL
[2024-12-03 20:00] VITALS: BP 114/38; PULSE 64; RESP 20; TEMP 36.4; O2SAT 95
[2024-12-04] VITALS: BP 153/51; PULSE 59; RESP 20; TEMP 36.2; O2SAT 96
[2024-12-04 04:00] VITALS: BP 144/45; PULSE 67; RESP 20; TEMP 36.4; O2SAT 98
[2024-12-04 08:00] VITALS: BP 125/47; PULSE 60; RESP 18; TEMP 36.2; O2SAT 97
[2024-12-04 10:08] LABS: BG BASE EXCESS 7.4 mmol/L (-2.0-3.0); BG CARBOXYHEMOGLOBIN 1.1 % (0.5-1.5); BG DEOXYHEMOGLOBIN 6.8 % (0.0-5.0); BG FRACTION INSPIRED OXYGEN 21; BG HCO3 ACT 32.8 mmol/L (21.0-28.0); BG METHEMOGLOBIN 0.3 % (0.5-1.5); BG OXYGEN SATURATION 93.1 % (94.0-98.0); BG OXYHEMOGLOBIN 91.8 % (94.0-98.0); BG PCO2 50.1 mmHg (35.0-48.0); BG PH 7.434 (7.350-7.450); BG PO2 65.9 mmHg (83.0-108.0); BG SAMPLE SITE RIGHT RADIAL; BG VENT MODE ROOM AIR
[2024-12-04 12:00] VITALS: BP 132/54; PULSE 62; RESP 18; TEMP 36.4; O2SAT 97
[2024-12-04 16:00] VITALS: BP 124/30; PULSE 62; RESP 16; TEMP 36.4; O2SAT 97
[2024-12-04 20:00] VITALS: BP 115/55; PULSE 69; RESP 19; TEMP 36.7; O2SAT 96
[2024-12-05] VITALS: BP 96/57; PULSE 75; RESP 19; TEMP 36.6; O2SAT 98
[2024-12-05 04:00] VITALS: BP 110/76; PULSE 62; RESP 19; TEMP 36.9; O2SAT 97
[2024-12-05 08:00] VITALS: BP 135/56; PULSE 66; RESP 20; TEMP 35.8; O2SAT 97
[2024-12-05 12:00] VITALS: BP 130/79; PULSE 69; RESP 19; TEMP 36.3; O2SAT 97
[2024-12-05 16:00] VITALS: BP 132/85; PULSE 65; RESP 18; TEMP 36.2; O2SAT 97
[2024-12-05 20:00] VITALS: BP 117/76; PULSE 66; RESP 20; TEMP 36.6; O2SAT 100
[2024-12-05] MEDS: LORAZEPAM 0.5MG TABLET PO PRN (21:42)
[2024-12-06] VITALS: BP 118/55; PULSE 61; RESP 20; TEMP 35.9; O2SAT 95
[2024-12-06 04:00] VITALS: BP 122/43; PULSE 68; RESP 20; TEMP 36.3; O2SAT 98
[2024-12-06 08:00] VITALS: BP 156/76; PULSE 58; RESP 17; TEMP 36.1; O2SAT 98
[2024-12-06 12:00] VITALS: BP 118/53; PULSE 61; RESP 18; TEMP 36.2; O2SAT 97
[2024-12-06] MEDS ORDERED: DAPTOMYCIN 350 MG in SODIUM CHLORIDE 0.9% 50 ML IV SCH (14:00)
[2024-12-06 16:00] VITALS: BP 101/40; PULSE 62; RESP 18; TEMP 36.4; O2SAT 98
[2024-12-06 20:00] VITALS: BP 120/45; PULSE 61; RESP 16; TEMP 36.3; O2SAT 95
[2024-12-07] VITALS: BP 125/89; PULSE 61; RESP 16; TEMP 36.3; O2SAT 99
[2024-12-07 04:00] VITALS: BP 118/70; PULSE 58; RESP 14; TEMP 36.3; O2SAT 96
[2024-12-07 08:00] VITALS: BP 130/54; PULSE 75; RESP 18; TEMP 35.5; O2SAT 95
[2024-12-07 10:40] LABS: HEMATOCRIT. 26.8 % (42.0-52.0); HEMOGLOBIN. 8.8 g/dL (14.0-18.0); MEAN CORPUSCULAR HEMOGLOBIN 28.6 pg (28.0-32.0); MEAN CORPUSCULAR HGB CONC 32.9 g/dL (31.0-37.0); PLATELET 269 x1000/uL (130-400); RED BLOOD CELL COUNT 3.08 mill/uL (4.7-6.1); RED CELL DISTRIBUTION WIDTH 17.9 % (11.6-14.6); WHITE BLOOD COUNT 4.4 x1000/uL (4.5-11.0)
[2024-12-07 10:45] LABS: DIFFERENTIAL COMMENT 1
[2024-12-07 10:49] LABS: CHLORIDE 99 mEq/L (98-107); POTASSIUM 3.7 mEq/L (3.5-5.1); SODIUM 140 mEq/L (136-145)
[2024-12-07 10:50] LABS: CARBON DIOXIDE 33 mEq/L (21-32)
[2024-12-07 10:51] LABS: CALCIUM 8.4 mg/dL (8.7-10.4)
[2024-12-07 10:55] LABS: GLUCOSE 143 mg/dL (70-105)
[2024-12-07 10:56] LABS: UREA NITROGEN BLOOD 71 mg/dL (9-23)
[2024-12-07 10:59] LABS: CREATININE 2.4 mg/dL (0.6-1.3)
[2024-12-07] MEDS ORDERED: MORPHINE SULFATE 2 MG/ML INJ (NOT FOR IM USE) IV PRN (12:30)
[2024-12-07] MEDS ORDERED: LORAZEPAM 2MG/ML UD SYRINGE IV PRN (12:30)
[2024-12-07] MEDS ORDERED: MORPHINE SULFATE 100 MG in SODIUM CHLORIDE 0.9% 90 ML IV PRN (12:30)
[2024-12-07 17:28] LABS: ANISOCYTOSIS 1+; PLATELET ESTIMATE NORMAL
[2024-12-08] MEDS ORDERED: DAPTOMYCIN 350 MG in SODIUM CHLORIDE 0.9% 50 ML IV SCH (16:00)
== END 2024-12-07 12:34 | DRG 987 ==
LOC: ER 01:47 → 7WST 04:27 → ER 05:50 → CVICU 11-14 03:48 → 5EST 11-17 17:46 → 6EST 12-01 15:40
PROVIDERS: ADMIT Family Medicine Adult Medicine; ATTEND Family Medicine Adult Medicine
PROC: 02HV33Z Insertion of Infusion Device into Superior Vena Cava, Percutaneous Approach (ICD-10-PCS; 2024-11-14)
PROC: B548ZZA Ultrasonography of Superior Vena Cava, Guidance (ICD-10-PCS; 2024-11-14)
PROC: 0KC20ZZ Extirpation of Matter from Right Neck Muscle, Open Approach (ICD-10-PCS; principal; 2024-11-22)
PROC: 5A12012 Performance of Cardiac Output, Single, Manual (ICD-10-PCS; 2024-12-07)
DX: J69.0 Pneumonitis due to inhalation of food and vomit (principal); J96.01 Acute respiratory failure with hypoxia; N17.0 Acute kidney failure with tubular necrosis; E87.0 Hyperosmolality and hypernatremia; I82.411 Acute embolism and thrombosis of right femoral vein; R64 Cachexia; L02.11 Cutaneous abscess of neck; K92.2 Gastrointestinal hemorrhage, unspecified; M60.08 Infective myositis, other site; Z16.21 Resistance to vancomycin; Z68.1 Body mass index [BMI] 19.9 or less, adult; E87.29 Other acidosis; J90 Pleural effusion, not elsewhere classified; G93.49 Other encephalopathy; R57.1 Hypovolemic shock; I10 Essential (primary) hypertension; E11.9 Type 2 diabetes mellitus without complications; F32.A Depression, unspecified; M48.00 Spinal stenosis, site unspecified; R00.1 Bradycardia, unspecified; D64.9 Anemia, unspecified; R13.10 Dysphagia, unspecified; R62.7 Adult failure to thrive; I45.10 Unspecified right bundle-branch block; I49.5 Sick sinus syndrome; B95.2 Enterococcus as the cause of diseases classified elsewhere; I46.9 Cardiac arrest, cause unspecified; S10.93XA Contusion of unspecified part of neck, initial encounter; I25.10 Atherosclerotic heart disease of native coronary artery without angina pectoris; S20.219A Contusion of unspecified front wall of thorax, initial encounter; Z66 Do not resuscitate; F03.90 Unspecified dementia, unspecified severity, without behavioral disturbance, psychotic disturbance, mood disturbance, and anxiety; D69.6 Thrombocytopenia, unspecified; S30.810A Abrasion of lower back and pelvis, initial encounter; S01.301A Unspecified open wound of right ear, initial encounter; S01.302A Unspecified open wound of left ear, initial encounter; E87.6 Hypokalemia; S50.811A Abrasion of right forearm, initial encounter; Z86.718 Personal history of other venous thrombosis and embolism; Z79.01 Long term (current) use of anticoagulants; Z91.81 History of falling; Z74.01 Bed confinement status; X58.XXXA Exposure to other specified factors, initial encounter; Y93.89 Activity, other specified; Y92.89 Other specified places as the place of occurrence of the external cause; Y99.8 Other external cause status
CPT/HCPCS: 36415; 36573; 36600; 70491; 71045; 73090; 76604; 76770; 80048; 80061; 80076; 80202; 81003; 82270; 82375; 82550; 82607; 82728; 82746; 82784; 82805; 82962; 83036; 83540; 83550; 83615; 83735; 83880; 84100; 84134; 84145; 84439; 84484; 85014; 85018; 85025; 85044; 85049; 85384; 86334; 86850; 86900; 86920; 87070; 87075; 87077; 87186; 90715; 92610; 93005; 93306; 93970; 94070; 94640; 94664; 94760; 98960; 99285; A4606; C1725; J0665; J0696; J0878; J1265; J1630; J1650; J1815; J1940; J2003; J2060; J2250; J2405; J2470; J2543; J3370; J3475; J3480; J3490; J7030; J7070; P9016; Q9967